=== PATIENT | female | born 1990 ===

== ENCOUNTER 2017-08-28 09:36 | Emergency (ER) | payer SELFPAY ==
[2017-08-28 09:57] VITALS: O2SAT 100; BMI 23.2
--- NOTE | 2017-08-28 11:08 | ED PDOC ---
HPI: Female Pain <Palmer Alvarado III - Last Filed: 08/28/17 14:28> Chief Complaint (Provider): abnormal vaginal discharge History Per: Patient History/Exam Limitations: no limitations Onset/Duration Of Symptoms: Days Current Symptoms Are (Timing): Still Present Severity: None Associated Symptoms: Other (breast tenderness). denies: Fever, Chills, Nausea, Vomiting, Diarrhea, Loss Of Appetite, Back Pain, Urinary Symptoms Alleviating Factors: None Additional Complaint(s): 27 yr old presents to ED with complaint of abnormal vaginal discharge x 1 day. Patient reports she took an at home test last week and it was positive. She has brown vaginal discharge since yesterday accompanied by one episode of transient pelvic pain which resolved on its own. Associated symptom is breast tenderness. Denies pelvic pain, vaginal pruritus, dizziness, weakness , fevers or chills. She does not have a PMD. She last saw a education professional 3 months ago and had a normal pap smear. Denies hx of STI. LMP 07/15/17. PMHx: iron deficiency anemia SocHx: denies tobacco or drugs, consumes Etoh socially Medications: vitamins Allergies: NKDA <Keyona Hebert - Last Filed: 08/28/17 15:35> Time Seen by Provider: 08/28/17 09:53 Chief Complaint (Nursing): Abdominal Pain Supervising Attending Note - Attestation: I have personally seen and examined this patient.: Yes I have fully participated in the care of the patient.: Yes I have reviewed all pertinent clinical information, including history, physical exam and plan: Yes - Notes: Notes:: patient <Palmer Alvarado III - Last Filed: 08/28/17 14:28> Past Medical History Vital Signs: Last Vital Signs Temp 98 F 08/28/17 09:52 Pulse 59 L 08/28/17 09:52 Resp BP 108/69 08/28/17 09:52 Pulse Ox 100 08/28/17 13:29 <Palmer Alvarado III - Last Filed: 08/28/17 14:28> Vital Signs: Last Vital Signs Temp 98 F 08/28/17 09:52 Pulse 59 L 08/28/17 09:52 Resp BP 108/69 08/28/17 09:52 Pulse Ox 100 08/28/17 09:52 - Medical History PMH: Anemia - Surgical History Surgical History: (x 1 for failure to dilate) - Family History Family History: States: Other Other Family History: mother of breast cancer at age 37 yrs old, sister has a bleeding disorder - Living Arrangements Living Arrangements: With Family - Social History Current smoker - smoking cessation education provided: No Ex-Smoker (has not smoked in the last 12 months): No Alcohol: Social Drugs: Denies <Keyona Hebert - Last Filed: 08/28/17 15:35> - Allergies Allergies/Adverse Reactions: Allergies Allergy/AdvReac Type Severity Reaction Status Date / Time No Known Allergies Allergy Verified 08/28/17 10:26 Review of Systems Constitutional: Negative for: Fever, Chills, Malaise Eyes: Negative for: Vision Change ENT: Negative for: Nose Discharge, Throat Pain Cardiovascular: Negative for: Chest Pain, Palpitations, Light Headedness Respiratory: Negative for: Cough, Shortness of Breath Gastrointestinal: Negative for: Nausea, Vomiting, Abdominal Pain, Diarrhea, Constipation Genitourinary Female: Negative for: Dysuria, Frequency Musculoskeletal: Negative for: Neck Pain, Shoulder Pain Skin: Negative for: Rash, Lesions, Jaundice Neurological: Negative for: Weakness, Confusion, Dizziness Psych: Negative for: Anxiety, Depression <Keyona Hebert - Last Filed: 08/28/17 15:35> Physical Exam - Physical Exam Appears: Positive for: No Acute Distress Head Exam: Positive for: ATRAUMATIC, NORMOCEPHALIC Skin: Positive for: Normal Color, Warm, Dry Eye Exam: Positive for: EOMI, PERRL ENT: Negative for: Pharyngeal Erythema, Tonsillar Exudate Neck: Positive for: Normal, Painless ROM, Supple Cardiovascular/Chest: Positive for: Regular Rate, Rhythm. Negative for: Gallop , Murmur Respiratory: Positive for: Normal Breath Sounds. Negative for: Rales, Rhonchi Pulses-Carotid (L): 2+ Pulses-Carotid (R): 2+ Pulses-Radial (L): 2+ Pulses-Radial (R): 2+ Gastrointestinal/Abdominal: Positive for: Bowel Sounds (present), Soft. Negative for: Tenderness Pelvic Exam: Positive for: Speculum Exam Normal (no vaginal erythema or lesions , external cervical os closed, no cervical lesions), Bimanual Exam Normal, Discharge (brownish discharge), Other (office director in room: Penny Beltran). Negative for: No Cerv. Motion Tender Back: Positive for: Normal Inspection Extremity: Positive for: Normal ROM. Negative for: Tenderness, Pedal Edema Lymphatic: Negative for: Adenopathy Neurologic/Psych: Positive for: Alert, radio officer II-XII, Oriented, Mood/Affect (normal /full range), Gait (normal). Negative for: Motor/Sensory Deficits <Keyona Hebert - Last Filed: 08/28/17 15:35> - Laboratory Results Result Diagrams: 08/28/17 11:00 08/28/17 11:00 <Palmer Alvarado III - Last Filed: 08/28/17 14:28> - Laboratory Results Result Diagrams: 08/28/17 11:00 08/28/17 11:00 - ECG O2 Sat by Pulse Oximetry: 100 - Progress ED Course And Treament: -Urine test: positive -Udip: trace ketones, negative leuk/negative nitr -UA: -Beta Hcg quant -CBC w/diff: normal -CMP: normal -Type and screen: A negative -OB transvaginal US: intrauterine , approx 5 wks and 5 days gestation, trace subchorionic hemorrhage -Rhogam ordered <Keyona Hebert - Last Filed: 08/28/17 15:35> Disposition <Palmer Alvarado III - Last Filed: 08/28/17 14:28> - Patient ED Disposition Is Patient to be Admitted: No Counseled Patient/Family Regarding: Diagnosis, Need For Followup - Disposition Disposition: Routine/Home Disposition Time: 14:40 <Keyona Hebert - Last Filed: 08/28/17 15:35> - Clinical Impression Clinical Impression: Subchorionic hematoma, Rh negative status during , Threatened - Disposition [facility]] Condition: STABLE Additional Instructions: You received Rhogam today for your Rh negative status during Recommend pelvic rest- no sex, nothing in vagina, rest for next week. Followup with your OB doctor next week. Return to ER for any worse or new symptoms. Instructions: Threatened Miscarriage, Bleeding With (DC), Rho(D) Immune Globulin, - The First Month Forms: [employer] (Cameroonian) Print Language: GERMAN
[2017-08-28 11:38] LABS: SQUAMOUS EPITHIAL 1 /hpf (0-5); URINE BACTERIA RARE (<OCC); URINE BILIRUBIN NEGATIVE (NEGATIVE); URINE BLOOD NEGATIVE (NEGATIVE); URINE CLARITY SLIGHTY-CLOUDY (Clear); URINE COLOR YELLOW (YELLOW); URINE GLUCOSE (UA) NEG (Normal); URINE LEUKOCYTE ESTERASE NEG Leu/uL (Negative); URINE PROTEIN NEGATIVE (NEGATIVE); URINE UROBILINOGEN 0.2-1.0 mg/dL (0.2-1.0)
[2017-08-28 11:44] LABS: BASO % 0.3 % (0.0-2.0); EOS % 0.7 % (0.0-4.0); LYMPH # 1.5 K/uL (1.0-4.3); LYMPH % 25.4 % (20.0-40.0); MEAN CELL VOLUME 87.3 fl (81.0-99.0); MEAN CORPUSCULAR HEMOGLOBIN 29.8 pg (27.0-31.0); MEAN CORPUSCULAR HGB CONC 34.2 g/dL (33.0-37.0); MONO # 0.6 K/uL (0.0-0.8); MONO % 9.4 % (0.0-10.0); NEUT # 3.8 K/uL (1.8-7.0); NEUT % 64.2 % (50.0-75.0); NRBC % 0.2 % (0.0-0.0); RBC 4.36 Mil/uL (3.80-5.20); RED CELL DISTRIBUTION WIDTH 13.7 % (11.5-14.5)
[2017-08-28 12:00] LABS: ALB/GLOB RATIO 1.2 (1.0-2.1); ALBUMIN 3.8 g/dL (3.5-5.0); ALT/SGPT 32 U/L (9-52); AST/SGOT 20 U/L (14-36); BLOOD UREA NITROGEN 10 mg/dl (7-17); CALCIUM 8.9 mg/dL (8.4-10.2); GFR AFRICAN-AMERICAN > 60; GFR NON-AFRICAN AMERICAN > 60
--- NOTE | 2017-08-28 12:08 | US ---
PROCEDURE: OB Pelvic Ultrasound HISTORY: LMP: 07/15/2017 COMPARISON: None available. FINDINGS: UTERUS: Gestational sac: Single intrauterine gestation. Measures 1.4 cm compatible with estimated gestational age of 5 weeks, 4 days. Yolk sac: Measures 0.3 cm. pole: [place]-rump length measures 0.3 cm compatible with estimated gestational age of 5 weeks, 6 days Heart rate: Not yet identified. age (Ultrasound estimated): 5 weeks, 5 days Fransisca-gestational hemorrhage: Trace subchorionic hemorrhage Date of delivery (Ultrasound estimated) : 04/25/2018 Uterus measures 9.0 x 4.4 x 6.3 cm. Anteverted. Nonspecific echogenic area within the lower uterine segment measuring 1.7 x 0.8 x 2.1 cm. CERVIX: Measures 3.6 cm. Long and closed. No cervical abnormality seen. RIGHT OVARY: Measures 3.0 x 1.9 x 2.2 cm. No mass lesion. Normal flow. LEFT OVARY: Measures 3.9 x 1.8 x 1.9 cm. 2.9 x 1.1 x 1.1 cm corpus luteum. Normal flow. FREE FLUID: None. OTHER FINDINGS: None. IMPRESSION: Single intrauterine gestation with average ultrasound age of 5 weeks, 5 days. heart rate not yet identified. Findings may represent early normal/ abnormal . Trace subchorionic hemorrhage. Nonspecific echogenic area within the lower uterine segment measuring up to 2.1 cm. Close clinical follow-up with serial pelvic sonography and serum beta HCG levels is recommended.
[2017-08-28 14:38] VITALS: BP 106/68; PULSE 60; RESP 16; TEMP 97.6
== END 2017-08-28 14:38 | disposition home or self-care (01) ==
LOC: H.ER 09:36
DX: O20.0 Threatened abortion (principal); Z3A.00 Weeks of gestation of pregnancy not specified; O26.891 Other specified pregnancy related conditions, first trimester; D50.9 Iron deficiency anemia, unspecified; N89.8 Other specified noninflammatory disorders of vagina; O99.011 Anemia complicating pregnancy, first trimester; Z3A.01 Less than 8 weeks gestation of pregnancy; Z87.891 Personal history of nicotine dependence
CPT/HCPCS: 76817; 80053; 81003; 81025; 84702; 85025; 86850; 86900; 99283; J2792

== ENCOUNTER 2017-09-03 15:49 | Emergency (ER) | payer SELFPAY ==
[2017-09-03 15:49] VITALS: BMI 23.2
[2017-09-03 16:03] VITALS: PULSE 78
--- NOTE | 2017-09-03 16:15 | ED PDOC ---
HPI: Female Pain Time Seen by Provider: 09/03/17 16:14 Chief Complaint (Nursing): Female Genitourinary Chief Complaint (Provider): abdominal pain History Per: Patient (27 y/o female approx 6 weeks h/o subchorionic hematoma here with persistent lower abd pain and bright red vaginal bleeding. Patient states she has f/u appt scheduled friday was concerned about vaginal bleeding. patient has received rhogam last visit 08/28 for vaginal bleeding.) Past Medical History Reviewed: Historical Data, Nursing Documentation, Vital Signs Vital Signs: Last Vital Signs Temp 99.1 F 09/03/17 16:00 Pulse 78 09/03/17 16:00 Resp 16 09/03/17 16:00 BP 97/56 L 09/03/17 16:00 Pulse Ox 100 09/03/17 16:00 - Medical History PMH: Anemia - Surgical History Surgical History: (x 1 for failure to dilate) - Family History Family History: States: No Known Family Hx - Allergies Allergies/Adverse Reactions: Allergies Allergy/AdvReac Type Severity Reaction Status Date / Time No Known Allergies Allergy Verified 09/03/17 15:59 Review of Systems ROS Statement: Except As Marked, All Systems Reviewed And Found Negative Physical Exam - Reviewed Nursing Documentation Reviewed: Yes Vital Signs Reviewed: Yes - Physical Exam Appears: Positive for: Well, Non-toxic, No Acute Distress Head Exam: Positive for: ATRAUMATIC, NORMAL INSPECTION, NORMOCEPHALIC Skin: Positive for: Normal Color, Warm, DRY Eye Exam: Positive for: EOMI, Normal appearance, PERRL ENT: Positive for: Normal ENT Inspection Neck: Positive for: Normal, Painless ROM Cardiovascular/Chest: Positive for: Regular Rate, Rhythm Respiratory: Positive for: CNT, Normal Breath Sounds Gastrointestinal/Abdominal: Positive for: Normal Exam, Soft Back: Positive for: Normal Inspection Extremity: Positive for: Normal ROM Neurologic/Psych: Positive for: Alert, Oriented - Laboratory Results Result Diagrams: 09/03/17 17:30 09/03/17 17:30 - ECG O2 Sat by Pulse Oximetry: 100 - Progress ED Course And Treament: IMPRESSION: Single live intrauterine gestation of approximately 6 weeks 4 days. heart rate 133 beats per minute. No perigestational hemorrhage. Small amount of complex fluid in the lower uterine segment, possibly blood. Small amount of fluid in cul-de-sac. No additional abnormality. Disposition - Clinical Impression Clinical Impression: Subchorionic hemorrhage in first trimester - Disposition [facility]errals[facility] [[facility]] Disposition: Routine/Home Disposition Time: 18:43 Condition: FAIR Instructions: Threatened Miscarriage (DC), Bleeding With (DC) Forms: [employer] (Niuean) Print Language: PRYDEINIG
[2017-09-03 17:40] LABS: BASO % 0.4 % (0.0-2.0); EOS # 0.1 K/uL (0.0-0.7); EOS % 1.3 % (0.0-4.0); HEMOGLOBIN 12.1 g/dL (12.0-16.0); LYMPH # 1.1 K/uL (1.0-4.3); MEAN CELL VOLUME 88.7 fl (81.0-99.0); MEAN CORPUSCULAR HEMOGLOBIN 29.5 pg (27.0-31.0); MEAN CORPUSCULAR HGB CONC 33.2 g/dL (33.0-37.0); MEAN PLATELET VOLUME 9.3 fl (7.2-11.7); MONO # 0.5 K/uL (0.0-0.8); MONO % 6.8 % (0.0-10.0); NEUT # 5.5 K/uL (1.8-7.0); NEUT % 76.5 % (50.0-75.0); RBC 4.09 Mil/uL (3.80-5.20); RED CELL DISTRIBUTION WIDTH 13.7 % (11.5-14.5); WHITE BLOOD COUNT 7.2 K/uL (4.8-10.8)
[2017-09-03 17:48] LABS: BLOOD UREA NITROGEN 11 mg/dl (7-17); CALCIUM 8.4 mg/dL (8.4-10.2); GFR AFRICAN-AMERICAN > 60; GFR NON-AFRICAN AMERICAN > 60
[2017-09-03 18:15] LABS: SQUAMOUS EPITHIAL 14 /hpf (0-5); URINE BACTERIA OCC (<OCC); URINE BILIRUBIN NEGATIVE (NEGATIVE); URINE BLOOD MODERATE (NEGATIVE); URINE CLARITY CLOUDY (Clear); URINE COLOR YELLOW (YELLOW); URINE GLUCOSE (UA) NEG (Normal); URINE LEUKOCYTE ESTERASE NEG Leu/uL (Negative); URINE PROTEIN NEGATIVE (NEGATIVE); URINE UROBILINOGEN 0.2-1.0 mg/dL (0.2-1.0)
--- NOTE | 2017-09-03 18:15 | US ---
PROCEDURE: OB Pelvic Ultrasound HISTORY: threatened miscarriage COMPARISON: 08/28/2017 FINDINGS: UTERUS: Single Live intrauterine gestation. CRL is 62 mm equivalent to 6 weeks 3 days gestational age. Gestational sac diameter equivalent to 6 weeks 5 days gestation age (Ultrasound estimated): 6 weeks 4 days Date of delivery (Ultrasound estimated) : 04/25/2018 Heart rate: 133 bpm. Fransisca-gestational hemorrhage: None There is a small amount of complex fluid in the lower endometrial cavity, possibly reflecting current hemorrhage. CERVIX: Long and closed. No cervical abnormality seen. RIGHT OVARY: Measures 3.3 x 1.8 x 2.9 cm. No mass. Normal flow. LEFT OVARY: Measures 3.2 x 1.5 x 3.6 cm. No mass. Normal flow. FREE FLUID: Small amount of fluid in cul-de-sac OTHER FINDINGS: None. IMPRESSION: Single live intrauterine gestation of approximately 6 weeks 4 days. heart rate 133 beats per minute. No perigestational hemorrhage. Small amount of complex fluid in the lower uterine segment, possibly blood. Small amount of fluid in cul-de-sac. No additional abnormality.
[2017-09-03 19:03] VITALS: BP 100/56; RESP 18; TEMP 98.8; O2SAT 99
== END 2017-09-03 19:02 | disposition home or self-care (01) ==
LOC: H.ER 15:49
DX: O20.0 Threatened abortion (principal); Z3A.01 Less than 8 weeks gestation of pregnancy

== ENCOUNTER 2017-11-21 04:08 | Emergency (ER) | payer MEDICAID ==
[2017-11-21 04:25] VITALS: BMI 25.6
[2017-11-21 04:28] VITALS: RESP 16
--- NOTE | 2017-11-21 05:29 | ED PDOC ---
HPI: Female Pain Time Seen by Provider: 11/21/17 04:11 Chief Complaint (Nursing): Female Genitourinary Chief Complaint (Provider): Abdominal pain and vaginal bleeding History Per: Patient History/Exam Limitations: no limitations Onset/Duration Of Symptoms: Hrs (x4) Additional Complaint(s): Serena Concepcion is a 27 y/o woman who is , EGA 16.5 weeks , presenting with abdominal pain with associated vaginal bleeding. Patient reports she was seen at the emergency room in the [place] x6 days ago (11/15/17) and x2 days ago (11/19/17) and was told at that time she had a fibroma. Patient reports pain became worse around 01:00 today prompting the ED visit. : 2 Para: 1 Past Medical History Reviewed: Historical Data, Nursing Documentation, Vital Signs Vital Signs: Last Vital Signs Temp 98.7 F 11/21/17 04:25 Pulse 74 11/21/17 04:25 Resp 16 11/21/17 04:25 BP 114/64 11/21/17 04:25 Pulse Ox 100 11/21/17 04:25 - Medical History PMH: Anemia - Surgical History Surgical History: (x 1 for failure to dilate) - Family History Family History: States: Unknown Family Hx - Social History Current smoker - smoking cessation education provided: No Alcohol: None Drugs: Denies - Allergies Allergies/Adverse Reactions: Allergies Allergy/AdvReac Type Severity Reaction Status Date / Time No Known Allergies Allergy Verified 11/21/17 04:25 Review of Systems ROS Statement: Except As Marked, All Systems Reviewed And Found Negative Gastrointestinal: Positive for: Abdominal Pain Genitourinary Female: Positive for: Vaginal Bleeding Physical Exam - Reviewed Nursing Documentation Reviewed: Yes Vital Signs Reviewed: Yes - Physical Exam Appears: Positive for: Uncomfortable Head Exam: Positive for: ATRAUMATIC, NORMOCEPHALIC Skin: Positive for: Normal Color, Warm, Dry Eye Exam: Positive for: EOMI, Normal appearance, PERRL Neck: Positive for: Normal, Painless ROM, Supple Cardiovascular/Chest: Positive for: Regular Rate, Rhythm. Negative for: Murmur Respiratory: Positive for: Normal Breath Sounds. Negative for: Respiratory Distress Gastrointestinal/Abdominal: Positive for: Normal Exam, Soft, Other (gravid fundus). Negative for: Tenderness Back: Positive for: Normal Inspection. Negative for: L CVA Tenderness, R CVA Tenderness Extremity: Positive for: Normal ROM. Negative for: Pedal Edema, Deformity Neurologic/Psych: Positive for: Alert, Oriented. Negative for: Motor/Sensory Deficits - Laboratory Results Result Diagrams: 11/21/17 05:35 - ECG O2 Sat by Pulse Oximetry: 100 (RA) Pulse Ox Interpretation: Normal Medical Decision Making Medical Decision Making: Time: 04:36 Impression: 27 y/o female presenting with abdominal pain and vaginal bleeding in in setting of recently diagnosed fibroids Initial Plan: --beta-HCG --Ed urine dipstick --CBC w/ differential --Tylenol 650 mg PO --Urinalysis --US - OB Time: 07:00 Patient care is endorsed to Dr. Alvarado from provider pending US and reevaluation. Scribe Attestation: Documented by Duncan Freire, acting as a scribe for Art Olmstead MD. Provider Scribe Attestation: All medical record entries made by the Scribe were at my direction and personally dictated by me. I have reviewed the chart and agree that the record accurately reflects my personal performance of the history, physical exam, medical decision making, and the department course for this patient. I have also personally directed, reviewed, and agree with the discharge instructions and disposition. Disposition - Patient ED Disposition Is Patient to be Admitted: Transfer of Care - Disposition Disposition: Transfer of Care Disposition Time: 07:00 (transfer of care) Forms: [employer] (Albanian) Patient Signed Over To: Palmer Alvarado III Handoff Comments: Pending US and reeval
[2017-11-21] MEDS ORDERED: Morphine 4 MG/ML VIAL IVP ONE (05:31)
[2017-11-21] MEDS ORDERED: Morphine 4 MG/ML VIAL ONE (05:32)
[2017-11-21] MEDS ORDERED: Sodium Chloride 0.9% 1,000 ML IV STA (05:33)
[2017-11-21 05:40] LABS: BASO % 0.2 % (0.0-2.0); EOS # 0.1 K/uL (0.0-0.7); EOS % 0.6 % (0.0-4.0); HEMOGLOBIN 11.9 g/dL (12.0-16.0); LYMPH # 1.6 K/uL (1.0-4.3); LYMPH % 12.5 % (20.0-40.0); MEAN CELL VOLUME 90.2 fl (81.0-99.0); MEAN CORPUSCULAR HEMOGLOBIN 30.7 pg (27.0-31.0); MEAN CORPUSCULAR HGB CONC 34.1 g/dL (33.0-37.0); MEAN PLATELET VOLUME 8.5 fl (7.2-11.7); MONO # 0.7 K/uL (0.0-0.8); MONO % 5.3 % (0.0-10.0); NEUT # 10.1 K/uL (1.8-7.0); NEUT % 81.4 % (50.0-75.0); RBC 3.88 Mil/uL (3.80-5.20); RED CELL DISTRIBUTION WIDTH 14.2 % (11.5-14.5); WHITE BLOOD COUNT 12.5 K/uL (4.8-10.8)
[2017-11-21 05:51] LABS: SQUAMOUS EPITHIAL 3 /hpf (0-5); URINE BILIRUBIN NEGATIVE (NEGATIVE); URINE BLOOD LARGE (NEGATIVE); URINE CLARITY SLIGHTY-CLOUDY (Clear); URINE COLOR YELLOW (YELLOW); URINE GLUCOSE (UA) NEG (Normal); URINE LEUKOCYTE ESTERASE SMALL Leu/uL (Negative); URINE PROTEIN NEGATIVE (NEGATIVE); URINE UROBILINOGEN 0.2-1.0 mg/dL (0.2-1.0)
--- NOTE | 2017-11-21 06:57 | ED PDOC ---
- Laboratory Results Result Diagrams: 11/21/17 05:35 - ECG O2 Sat by Pulse Oximetry: 100 (RA) Medical Decision Making Medical Decision Makinam received pending US and labs Pelvic exam performed sterile conditions w RN meseret minor bleeding in vag vault cervix closed Rh neg but she states received Rhogam at [facility] this past weekend after similar ED visit US prelim +FHR at 18wks placenta posterior away from cervix D/w Dr Jade OB advertising production manager no need for further imaging at this gestational age for cervix visualization, rec treat UTI w keflex and follow culture, pelvic rest. explained results and recs in divehi via ab[employer]ix tape transferrer service Disposition Discussed With Dr.: Haile Jade Counseled Patient/Family Regarding: Studies Performed, Diagnosis, Need For Followup - Clinical Impression Clinical Impression: UTI (urinary tract infection) - POA Present On Arrival: None - Disposition Disposition: Routine/Home Disposition Time: 09:33 Condition: STABLE Additional Instructions: Recommend pelvic rest, no sex, nothing in vagina, no heavy lifting or exertion. See your OB within next week for followup/ Recomiende el descanso plvico, nada de sexo, nada en la vagina, ni levantar objetos pesados ni hacer ejercicio. Consulte a adler OB la prxima semana para adler seguimiento / Como antibiticos segn las indicaciones. Use solo Tylenol para el dolor. Prescriptions: Cephalexin [Keflex] 250 mg PO TID #15 capsule Instructions: Urinary Tract Infections in Adults, Threatened Miscarriage, Bleeding With (DC) Forms: [employer] (Mexican) Print Language: BRITISH
[2017-11-21 10:09] VITALS: BP 104/68; PULSE 68; TEMP 97.7; O2SAT 98
--- NOTE | 2017-11-21 11:54 | US ---
Date of service: 11/21/2017 PROCEDURE: HISTORY: Abdominal pain COMPARISON: None available. TECHNIQUE: Standard protocol for this study/examination. FINDINGS: Breech presentation. Posterior Placenta. No evidence of abruption or previa Gestational age derived from LMP 18 weeks 2 days. JULIET 04/22/2018. Gestational age derived from the following biometric parameters 18 weeks. JULIET 04/24/2018 Biparietal diameter 3.96 cm Head circumference 14.88 cm Abdominal circumference 12.40 cm Femur length 2.65 cm Estimated weight 221.4 g Calculated cardiac rate 142 beats per min. IMPRESSION: Eighteen weeks live intrauterine gestation. Gestational concordance documented. Concordant results (preliminary interpretation) provided by [facility]. Procedure Completed: 06:06. Preliminary ([facility]) Report: Dictated and Authenticated: 07:50. Final Interpretation: 11:53.
== END 2017-11-21 10:14 | disposition home or self-care (01) ==
LOC: H.ER 04:08 → H.ERHOLD 11-22 02:29 → UNDOADMIN 11-22 02:29
DX: O23.40 Unspecified infection of urinary tract in pregnancy, unspecified trimester (principal); O21.9 Vomiting of pregnancy, unspecified
CPT/HCPCS: 76815; 81003; 84702; 85025; 86850; 86870; 86900; 87086; 96361; 96374; 99284; J2270; J7030

== ENCOUNTER 2017-11-22 00:30 | Observation (INO) | payer MEDICAID ==
[2017-11-22 00:30] VITALS: BMI 25.6
--- NOTE | 2017-11-22 00:45 | ED PDOC ---
HPI: Female Pain Time Seen by Provider: 11/22/17 00:44 Chief Complaint (Nursing): Female Genitourinary Chief Complaint (Provider): with abdominal pain Additional Complaint(s): 27 year old female, , currently 18 weeks presents with lower abdominal pain and vaginal bleeding. Patient was seen in emergency room yesterday for same and ultrasound showed that she is 18 weeks in 2 days with breech position. Patient returns today with persistent pain but states that bleeding has decreased since yesterday. She denies any fever or chills, no nausea or vomiting. OB: in the [place] Past Medical History Reviewed: Historical Data, Nursing Documentation, Vital Signs - Medical History PMH: Anemia - Surgical History Surgical History: (x 1 for failure to dilate) - Family History Family History: States: No Known Family Hx - Living Arrangements Living Arrangements: With Family - Social History Current smoker - smoking cessation education provided: No Alcohol: None Drugs: Denies - Home Medications Home Medications: Ambulatory Orders Medication Instructions Recorded Cephalexin [Keflex] 250 mg PO TID #15 capsule 11/21/17 - Allergies Allergies/Adverse Reactions: Allergies Allergy/AdvReac Type Severity Reaction Status Date / Time No Known Allergies Allergy Verified 11/22/17 00:42 Review of Systems ROS Statement: Except As Marked, All Systems Reviewed And Found Negative Constitutional: Negative for: Fever, Chills Cardiovascular: Negative for: Chest Pain Respiratory: Negative for: Cough Gastrointestinal: Positive for: Abdominal Pain. Negative for: Nausea, Vomiting , Diarrhea Genitourinary Female: Positive for: Vaginal Bleeding, Pelvic Pain Physical Exam - Reviewed Nursing Documentation Reviewed: Yes Vital Signs Reviewed: Yes - Physical Exam Appears: Positive for: Well, Non-toxic, No Acute Distress Skin: Positive for: Normal Color. Negative for: Rash Eye Exam: Positive for: Normal appearance Neck: Positive for: Normal Cardiovascular/Chest: Positive for: Regular Rate, Rhythm Respiratory: Positive for: Normal Breath Sounds. Negative for: Wheezing, Respiratory Distress Gastrointestinal/Abdominal: Positive for: Other (Gravid abdomen with tenderness to suprapubic region) Back: Negative for: L CVA Tenderness, R CVA Tenderness Extremity: Positive for: Normal ROM Neurologic/Psych: Positive for: Alert, Oriented - Laboratory Results Result Diagrams: 11/22/17 01:32 11/22/17 01:32 - ECG O2 Sat by Pulse Oximetry: 100 Pulse Ox Interpretation: Normal Medical Decision Making Medical Decision Makin27 year old female with abdominal pain and vaginal bleeding Plan: CBC CMP Beta quant IVF IV morphine IV zofran , OB fellow and Dr. Hare, OB attending, at bedside. As per pelvic exam demonstrates that cervix is open and that miscarriage is likely. Shortly after this examination patient began to miscarry and delivered fetus in ED. Patient was given total of 8 mg IV morphine and started on Pitocin drip as per Dr. Hare, for delivery of placenta. 4:15 am: Dr. Hare at bedside delivered placenta. Pitocin drip was stopped after placenta was delivered. Patient's blood type is A- she had RhoGAM administered on November 15, she does not require additional RhoGAM at this time. 5:19: Patient was reexamined, persistent vaginal bleeding noted. Case discussed further with Dr. Hare. Patient will be admitted for observation to his service. Patient agrees with observation admission. Disposition - Clinical Impression Clinical Impression: Spontaneous miscarriage - Patient ED Disposition Is Patient to be Admitted: Yes - Disposition Disposition Time: 05:23 Condition: FAIR - Pt Status Changed To: Hospital Disposition Of: Observation Results - Lab Results Lab Results: 11/22/17 11/22/17 01:32 01:32 WBC 11.7 H RBC 4.00 Hgb 12.3 Hct 36.1 MCV 90.4 MCH 30.8 MCHC 34.0 RDW 14.3 Plt Count 121 L MPV 8.3 Neut % (Auto) 82.3 H Lymph % (Auto) 11.8 L [place] % (Auto) 5.4 Eos % (Auto) 0.3 Baso % (Auto) 0.2 Neut # (Auto) 9.6 H Lymph # (Auto) 1.4 [place] # (Auto) 0.6 Eos # (Auto) 0.0 Baso # (Auto) 0.0 Sodium 135 Potassium 3.4 L Chloride 105 Carbon Dioxide 22 Anion Gap 11 BUN 8 Creatinine 0.5 L Est GFR ( Amer) > 60 Est GFR (Non-Af Amer) > 60 Random Glucose 109 H Calcium 8.5 Total Bilirubin 0.6 AST 28 ALT 40 Alkaline Phosphatase 74 Total Protein 6.9 Albumin 3.5 Globulin 3.4 Albumin/Globulin Ratio 1.0 Beta HCG, Quant 69563.00
[2017-11-22] MEDS ORDERED: Sodium Chloride 0.9% 1,000 ML IV STA ×2 (01:18→03:26)
[2017-11-22 01:34] LABS: BASO % 0.2 % (0.0-2.0); EOS % 0.3 % (0.0-4.0); HEMOGLOBIN 12.3 g/dL (12.0-16.0); LYMPH # 1.4 K/uL (1.0-4.3); LYMPH % 11.8 % (20.0-40.0); MEAN CELL VOLUME 90.4 fl (81.0-99.0); MEAN CORPUSCULAR HEMOGLOBIN 30.8 pg (27.0-31.0); MEAN PLATELET VOLUME 8.3 fl (7.2-11.7); MONO # 0.6 K/uL (0.0-0.8); MONO % 5.4 % (0.0-10.0); NEUT # 9.6 K/uL (1.8-7.0); NEUT % 82.3 % (50.0-75.0); RED CELL DISTRIBUTION WIDTH 14.3 % (11.5-14.5); WHITE BLOOD COUNT 11.7 K/uL (4.8-10.8)
[2017-11-22 01:44] LABS: ALBUMIN 3.5 g/dL (3.5-5.0); ALT/SGPT 40 U/L (9-52); AST/SGOT 28 U/L (14-36); BLOOD UREA NITROGEN 8 mg/dl (7-17); CALCIUM 8.5 mg/dL (8.4-10.2); GFR AFRICAN-AMERICAN > 60; GFR NON-AFRICAN AMERICAN > 60
[2017-11-22] MEDS ORDERED: Morphine 4 MG/ML VIAL ONE ×2 (02:15→02:42)
[2017-11-22] MEDS ORDERED: Morphine 4 MG/ML VIAL IVP STA (02:16)
[2017-11-22] MEDS ORDERED: Morphine 4 MG/ML VIAL IVP ONE (02:51)
--- NOTE | 2017-11-22 03:31 | CP.PCM.CON ---
<Rimma Lopez - Last Filed: 11/22/17 04:55> History of Present Illness - History of Present Illness History of Present Illness: Teleprinter was used for entire history and exam. Reason for Consult: Abdominal pain in the second trimester, vaginal bleeding Serena is a 27 year old at 18 weeks 3 days who is in the ER for the second time in 24 hours for abdominal pain and worsening vaginal bleeding. Currently she reports severe, episodic lower abdominal pain that began on and has been progressively worsening since. When the pain is present she rates it at a 10/10. She also reports that her vaginal bleeding began yesterday and has been worsening since that time. Denies diarrhea, vomiting, fever, chills, bloody stool, dysuria, urinary frequency or urgency. She was discharged less than 24 hours ago from the ED after a speculum exam showed small amounts of blood in the vault and a transvaginal US showed a viable IUP at 38 weeks and 2 days with no evidence of abruption or subchorionic hematoma, the adenexae were not evaluated, nor was surgical length. She had a UA showing moderate leukocyte esterase and was discharged with a prescription of Keflex, of which she has taken one dose. She had a normal WBC count at that time. Past Patient History - Past Medical History & Family History Past Family History: Reviewed and not pertinent (She has a history of one previous that delivered via at term with no complications. She denies any complications with this current .) - Past Social History Alcohol: None Drugs: Denies - HEMATOLOGICAL/ONCOLOGICAL Hx Anemia: Yes - PSYCHIATRIC Hx Substance Use: No - SURGICAL HISTORY Hx Surgeries: Yes Hx Section: Yes - ANESTHESIA Hx Anesthesia: Yes Hx Anesthesia Reactions: No Meds Allergies/Adverse Reactions: Allergies Allergy/AdvReac Type Severity Reaction Status Date / Time No Known Allergies Allergy Verified 11/22/17 00:42 - Medications Medications: Current Medications Sodium Chloride (Sodium Chloride 0.9%) 1,000 mls @ 125 mls/hr IV .Q8H STA Stop: 11/22/17 09:17 Last Admin: 11/22/17 01:31 Dose: 125 mls/hr Oxytocin 30 units/ Lactated (Ringer's) 503 mls @ 125 mls/hr IV .Q4H2M ONE PRN Reason: Protocol Stop: 11/22/17 06:52 Last Admin: 11/22/17 03:05 Dose: 125 mls/hr Physical Exam - Constitutional Additional comments: In pain, constantly shifting in bed - Respiratory Exam Respiratory Exam: NORMAL BREATHING PATTERN - GI/Abdominal Exam Additional comments: Gravid abdomen, tenderness to palpation in the lower quadrants and suprapubic region - Exam Additional comments: Speculum exam showed a bulging bag close to the introitus. Cervical/bimanual exam revealed a dilation of 3cm/90/bulging bag, no presenting part was felt. There was a small amount of deangelo blood seen around the introitus and in the vaginal vault. Results - Vital Signs Recent Vital Signs: Last Vital Signs Temp 98.2 F 11/22/17 03:04 Pulse 79 11/22/17 03:04 Resp 18 11/22/17 03:04 BP 118/68 11/22/17 03:04 Pulse Ox 98 11/22/17 03:04 - Labs Result Diagrams: 11/22/17 01:32 11/22/17 01:32 Labs: Laboratory Results - last 24 hr 11/22/17 11/22/17 01:32 01:32 WBC 11.7 H RBC 4.00 Hgb 12.3 Hct 36.1 MCV 90.4 MCH 30.8 MCHC 34.0 RDW 14.3 Plt Count 121 L MPV 8.3 Neut % (Auto) 82.3 H Lymph % (Auto) 11.8 L [place] % (Auto) 5.4 Eos % (Auto) 0.3 Baso % (Auto) 0.2 Neut # (Auto) 9.6 H Lymph # (Auto) 1.4 [place] # (Auto) 0.6 Eos # (Auto) 0.0 Baso # (Auto) 0.0 Sodium 135 Potassium 3.4 L Chloride 105 Carbon Dioxide 22 Anion Gap 11 BUN 8 Creatinine 0.5 L Est GFR ( Amer) > 60 Est GFR (Non-Af Amer) > 60 Random Glucose 109 H Calcium 8.5 Total Bilirubin 0.6 AST 28 ALT 40 Alkaline Phosphatase 74 Total Protein 6.9 Albumin 3.5 Globulin 3.4 Albumin/Globulin Ratio 1.0 Beta HCG, Quant 39067.00 Assessment & Plan (1) Inevitable complete spontaneous without complication Status: Acute Onset Date: ~11/22/17 Comment: Serena is a 27 year old who presented to the ER with fluctuating lower abdominal pain and vaginal bleeding found to be having an inevitable spontaneous second trimester with an open cervix and visible amniotic membranes. Shortly after her exam her pain steadily worsened. The initial plan was to admit her to L&D for pain control and miscarriage management, however she quickly delivered in the ER with an intact fetus. The usual dose of 30 units pitocin was begun with expectant management of the placenta, however after approximately one hour the placenta had not delivered. After gentle traction and partial manual extraction the placenta was eventually removed with minimal vaginal bleeding and good uterine tone. The patient spent time with the fetus in the ER before it was placed into a specimen container along with the placenta for pathology. Serena was offered a period of observation in the hospital but preferred to remain in the ER until a ride could be found to go home. She was counseled extensively on return precautions including excessive bleeding and signs/symptoms of infection. She is Rh negative but received Rhogam November 15 at an outside facility (she presented a card with verification ) so an additional Rhogam shot was not administered. It was also recommended that she make a follow-up appointment with a primary care provider to discuss the grieving process. The plan was discussed with the manager application ER physician, Dr. Sutton, as well as Kaye Munoz, who were in agreement with the plan for discharge to home as long as patient remained in stable condition. All patient questions were answered. (2) Second trimester Status: Acute Comment: Recommended she consult with her primary care physician, and likely an MFM, depending on the results of the pathology, since this is a second trimester miscarriage. There were no risk factors identified for cervical incompetence on initial history, however a more thorough medical and genetic history is likely warranted. <Jack Hare - Last Filed: 11/23/17 12:03> Results - Vital Signs Recent Vital Signs: Last Vital Signs Temp 97.5 F L 11/22/17 08:59 Pulse 74 11/22/17 09:33 Resp 17 11/22/17 09:33 BP 95/63 L 11/22/17 08:59 Pulse Ox 99 11/22/17 09:33 - Labs Result Diagrams: 11/22/17 05:50 11/22/17 01:32 Attending/Attestation - Attestation I have personally seen and examined this patient.: Yes I have fully participated in the care of the patient.: Yes I have reviewed all pertinent clinical information: Yes
[2017-11-22] MEDS ORDERED: cefTRIAXone (Rocephin) 1 gm Inj ONE (05:44)
[2017-11-22 06:00] LABS: BASO % 0.1 % (0.0-2.0); EOS % 0.1 % (0.0-4.0); HEMOGLOBIN 12.2 g/dL (12.0-16.0); LYMPH # 1.1 K/uL (1.0-4.3); LYMPH % 5.6 % (20.0-40.0); MEAN CELL VOLUME 90.4 fl (81.0-99.0); MEAN CORPUSCULAR HEMOGLOBIN 30.6 pg (27.0-31.0); MEAN CORPUSCULAR HGB CONC 33.8 g/dL (33.0-37.0); MEAN PLATELET VOLUME 8.2 fl (7.2-11.7); MONO # 0.5 K/uL (0.0-0.8); MONO % 2.4 % (0.0-10.0); NEUT # 17.7 K/uL (1.8-7.0); NEUT % 91.8 % (50.0-75.0); PLATELET COUNT 141 K/uL (130-400); RBC 4.01 Mil/uL (3.80-5.20); RED CELL DISTRIBUTION WIDTH 14.1 % (11.5-14.5); WHITE BLOOD COUNT 19.3 K/uL (4.8-10.8)
[2017-11-22 09:00] VITALS: BP 95/63; TEMP 97.5
[2017-11-22 09:50] VITALS: PULSE 74; RESP 17; O2SAT 99
--- NOTE | 2017-11-22 10:02 | CP.PCM.DIS ---
<Rodo Silvestre - Last Filed: 11/22/17 11:06> Provider - Provider Date of Admission: 11/22/17 02:29 Attending physician: Jack Hare Time Spent in preparation of Discharge (in minutes): 15 Hospital Course - Lab Results Lab Results: Most Recent Lab Values WBC 19.3 K/uL (4.8-10.8) H D 11/22/17 05:50 RBC 4.01 Mil/uL (3.80-5.20) 11/22/17 05:50 Hgb 12.2 g/dL (12.0-16.0) 11/22/17 05:50 Hct 36.2 % (34.0-47.0) 11/22/17 05:50 MCV 90.4 fl (81.0-99.0) 11/22/17 05:50 MCH 30.6 pg (27.0-31.0) 11/22/17 05:50 MCHC 33.8 g/dL (33.0-37.0) 11/22/17 05:50 RDW 14.1 % (11.5-14.5) 11/22/17 05:50 Plt Count 141 K/uL (130-400) 11/22/17 05:50 MPV 8.2 fl (7.2-11.7) 11/22/17 05:50 Neut % (Auto) 91.8 % (50.0-75.0) H 11/22/17 05:50 Lymph % (Auto) 5.6 % (20.0-40.0) L 11/22/17 05:50 [place] % (Auto) 2.4 % (0.0-10.0) 11/22/17 05:50 Eos % (Auto) 0.1 % (0.0-4.0) 11/22/17 05:50 Baso % (Auto) 0.1 % (0.0-2.0) 11/22/17 05:50 Neut # (Auto) 17.7 K/uL (1.8-7.0) H 11/22/17 05:50 Lymph # (Auto) 1.1 K/uL (1.0-4.3) 11/22/17 05:50 [place] # (Auto) 0.5 K/uL (0.0-0.8) 11/22/17 05:50 Eos # (Auto) 0.0 K/uL (0.0-0.7) 11/22/17 05:50 Baso # (Auto) 0.0 K/uL (0.0-0.2) 11/22/17 05:50 Sodium 135 mmol/l (132-148) 11/22/17 01:32 Potassium 3.4 MMOL/L (3.6-5.0) L 11/22/17 01:32 Chloride 105 mmol/L (98-107) 11/22/17 01:32 Carbon Dioxide 22 mmol/L (22-30) 11/22/17 01:32 Anion Gap 11 (10-20) 11/22/17 01:32 BUN 8 mg/dl (7-17) 11/22/17 01:32 Creatinine 0.5 mg/dl (0.7-1.2) L 11/22/17 01:32 Est GFR ( Amer) > 60 11/22/17 01:32 Est GFR (Non-Af Amer) > 60 11/22/17 01:32 Random Glucose 109 mg/dL (65-105) H 11/22/17 01:32 Calcium 8.5 mg/dL (8.4-10.2) 11/22/17 01:32 Total Bilirubin 0.6 mg/dl (0.2-1.3) 11/22/17 01:32 AST 28 U/L (14-36) 11/22/17 01:32 ALT 40 U/L (9-52) 11/22/17 01:32 Alkaline Phosphatase 74 U/L (38-126) 11/22/17 01:32 Total Protein 6.9 G/DL (6.3-8.2) 11/22/17 01:32 Albumin 3.5 g/dL (3.5-5.0) 11/22/17 01:32 Globulin 3.4 gm/dL (2.2-3.9) 11/22/17 01:32 Albumin/Globulin Ratio 1.0 (1.0-2.1) 11/22/17 01:32 Beta HCG, Quant 98073.00 mIU/mL 11/22/17 01:32 - Hospital Course Hospital Course: Pt is a 27 yo f on 18 wk with no PMH present to ER due to abdomianl pain and vaginal bleeding. Pt was admitted for evaluate for spontaneous . Pt was treated with Oxytocin, Morphine to complete the and control the pain. Pt was given Rocephin afterward. As per today Pt abdominal pain have improved, still have some blood, but decreasing, She still tearful due to the acute event, Pt received extensive consult from the OBGYN attending about miscarriage, and how to to manage. Pt have no complain as per today, she denies headache, chest pain SOB, diarrhea constipation, dysuria or polyuria. Pt feel ready to go home. Pt is medically cleared from point of view of OBGYN. Pt should F/U with PCP in 1 to 2 week. - Date & Time of H&P Date of H&P: 11/22/17 Time of H&P: 10:57 Discharge Exam - Head Exam Head Exam: ATRAUMATIC, NORMAL INSPECTION, NORMOCEPHALIC - Eye Exam Eye Exam: EOMI, Normal appearance, PERRL Pupil Exam: NORMAL ACCOMODATION, PERRL - ENT Exam ENT Exam: Mucous Membranes Moist, Normal Exam - Neck Exam Neck exam: Full Rom - Respiratory Exam Respiratory Exam: Clear to PA & Lateral, NORMAL BREATHING PATTERN, UNREMARKABLE - Cardiovascular Exam Cardiovascular Exam: REGULAR RHYTHM, +S1, +S2 - GI/Abdominal Exam GI & Abdominal Exam: Normal Bowel Sounds, Tenderness, Unremarkable Additional comments: tender on LLQ - Back Exam Back exam: NORMAL INSPECTION - Neurological Exam Neurological exam: Alert, Normal Gait, Oriented x3 - Psychiatric Exam Psychiatric exam: Normal Affect, Normal Mood - Skin Skin Exam: Dry, Intact, Normal Color, Warm Discharge Plan - Follow Up Plan Condition: GOOD Disposition: HOME/ ROUTINE Patient education suggested?: Yes Instructions: Miscarriage, Dealing With Miscarriage, Miscarriage (DC) <Jack Hare - Last Filed: 11/23/17 12:04> Provider - Provider Date of Admission: 11/22/17 02:29 Attending physician: [facility] - Lab Results Lab Results: Most Recent Lab Values WBC 19.3 K/uL (4.8-10.8) H D 11/22/17 05:50 RBC 4.01 Mil/uL (3.80-5.20) 11/22/17 05:50 Hgb 12.2 g/dL (12.0-16.0) 11/22/17 05:50 Hct 36.2 % (34.0-47.0) 11/22/17 05:50 MCV 90.4 fl (81.0-99.0) 11/22/17 05:50 MCH 30.6 pg (27.0-31.0) 11/22/17 05:50 MCHC 33.8 g/dL (33.0-37.0) 11/22/17 05:50 RDW 14.1 % (11.5-14.5) 11/22/17 05:50 Plt Count 141 K/uL (130-400) 11/22/17 05:50 MPV 8.2 fl (7.2-11.7) 11/22/17 05:50 Neut % (Auto) 91.8 % (50.0-75.0) H 11/22/17 05:50 Lymph % (Auto) 5.6 % (20.0-40.0) L 11/22/17 05:50 [place] % (Auto) 2.4 % (0.0-10.0) 11/22/17 05:50 Eos % (Auto) 0.1 % (0.0-4.0) 11/22/17 05:50 Baso % (Auto) 0.1 % (0.0-2.0) 11/22/17 05:50 Neut # (Auto) 17.7 K/uL (1.8-7.0) H 11/22/17 05:50 Lymph # (Auto) 1.1 K/uL (1.0-4.3) 11/22/17 05:50 [place] # (Auto) 0.5 K/uL (0.0-0.8) 11/22/17 05:50 Eos # (Auto) 0.0 K/uL (0.0-0.7) 11/22/17 05:50 Baso # (Auto) 0.0 K/uL (0.0-0.2) 11/22/17 05:50 Neutrophils % (Manual) 87 % (42-75) H 11/22/17 05:50 Band Neutrophils % 4 % (0-2) H 11/22/17 05:50 Lymphocytes % (Manual) 5 % (20-50) L 11/22/17 05:50 Monocytes % (Manual) 4 % (0-10) 11/22/17 05:50 Platelet Estimate Normal (NORMAL) 11/22/17 05:50 RBC Morphology Normal (NORMAL) 11/22/17 05:50 Sodium 135 mmol/l (132-148) 11/22/17 01:32 Potassium 3.4 MMOL/L (3.6-5.0) L 11/22/17 01:32 Chloride 105 mmol/L (98-107) 11/22/17 01:32 Carbon Dioxide 22 mmol/L (22-30) 11/22/17 01:32 Anion Gap 11 (10-20) 11/22/17 01:32 BUN 8 mg/dl (7-17) 11/22/17 01:32 Creatinine 0.5 mg/dl (0.7-1.2) L 11/22/17 01:32 Est GFR ( Amer) > 60 11/22/17 01:32 Est GFR (Non-Af Amer) > 60 11/22/17 01:32 Random Glucose 109 mg/dL (65-105) H 11/22/17 01:32 Calcium 8.5 mg/dL (8.4-10.2) 11/22/17 01:32 Total Bilirubin 0.6 mg/dl (0.2-1.3) 11/22/17 01:32 AST 28 U/L (14-36) 11/22/17 01:32 ALT 40 U/L (9-52) 11/22/17 01:32 Alkaline Phosphatase 74 U/L (38-126) 11/22/17 01:32 Total Protein 6.9 G/DL (6.3-8.2) 11/22/17 01:32 Albumin 3.5 g/dL (3.5-5.0) 11/22/17 01:32 Globulin 3.4 gm/dL (2.2-3.9) 11/22/17 01:32 Albumin/Globulin Ratio 1.0 (1.0-2.1) 11/22/17 01:32 Beta HCG, Quant 68744.00 mIU/mL 11/22/17 01:32 Attending/Attestation - Attestation I have personally seen and examined this patient.: Yes I have fully participated in the care of the patient.: Yes I have reviewed all pertinent clinical information, including history, physical exam and plan: Yes
[2017-11-22 10:42] LABS: BANDS 4 % (0-2); LYMPHOCYTE 5 % (20-50); MONOCYTE 4 % (0-10); NEUTROPHIL 87 % (42-75); PLATELET ESTIMATE NORMAL (NORMAL); TOTAL CELLS COUNTED 100
== END 2017-11-22 12:10 | disposition home or self-care (01) ==
LOC: H.ER 00:30 → H.ERHOLD 02:29 → H.L&D 02:29 → H.MEDSURG1 08:34
PROVIDERS: ADMIT Obstetrics & Gynecology; ATTEND Obstetrics & Gynecology
DX: O03.9 Complete or unspecified spontaneous abortion without complication (principal)
CPT/HCPCS: 80053; 84702; 85025; 96360; 96361; 96365; 96374; 99285; G0378; J0696; J2270; J2405; J2590; J7030; J7120

== ENCOUNTER 2018-02-24 09:50 | Emergency (ER) | payer MEDICAID, OTHER ==
[2018-02-24 09:50] VITALS: BMI 25.6
[2018-02-24 10:03] VITALS: RESP 18; O2SAT 100
--- NOTE | 2018-02-24 11:08 | ED PDOC ---
HPI: Abdomen Time Seen by Provider: 02/24/18 10:31 Chief Complaint (Nursing): Abdominal Pain Chief Complaint (Provider): Abdominal Pain History Per: Patient History/Exam Limitations: no limitations Onset/Duration Of Symptoms: Persistent (x1 week) Current Symptoms Are (Timing): Still Present Additional Complaint(s): 27 year old female presents to ED with a complaint of upper abdominal pain for 1 week. She denies any nausea, vomiting, diarrhea, dysuria, hematura, or taking pain medication [employer]. LMP: 02/15/18. No weakness, fever, cough. PCP: none provided Past Medical History Reviewed: Historical Data, Nursing Documentation, Vital Signs Vital Signs: Last Vital Signs Temp 98.8 F 02/24/18 10:03 Pulse 70 02/24/18 10:03 Resp 18 02/24/18 10:03 BP 109/70 02/24/18 10:03 Pulse Ox 100 02/24/18 10:03 - Medical History PMH: Anemia Denies: HIV, Chronic Kidney Disease - Surgical History Surgical History: (x 1 for failure to dilate) - Family History Family History: States: Unknown Family Hx - Home Medications Home Medications: Ambulatory Orders Medication Instructions Recorded Cephalexin [Keflex] 250 mg PO TID #15 capsule 11/21/17 Famotidine [Pepcid] 20 mg PO DAILY PRN #6 tab 02/24/18 - Allergies Allergies/Adverse Reactions: Allergies Allergy/AdvReac Type Severity Reaction Status Date / Time No Known Allergies Allergy Verified 02/24/18 10:13 Review of Systems ROS Statement: Except As Marked, All Systems Reviewed And Found Negative Gastrointestinal: Positive for: Abdominal Pain (upper). Negative for: Nausea, Vomiting, Diarrhea Genitourinary Female: Negative for: Dysuria, Hematuria Physical Exam - Reviewed Nursing Documentation Reviewed: Yes Vital Signs Reviewed: Yes - Physical Exam Appears: Positive for: Well, Non-toxic, No Acute Distress Head Exam: Positive for: ATRAUMATIC, NORMAL INSPECTION, NORMOCEPHALIC Skin: Positive for: Normal Color Eye Exam: Positive for: Normal appearance ENT: Positive for: Normal ENT Inspection Neck: Positive for: Normal Cardiovascular/Chest: Positive for: Regular Rate, Rhythm Respiratory: Positive for: Normal Breath Sounds. Negative for: Respiratory Distress Gastrointestinal/Abdominal: Positive for: Soft, Tenderness (bilateral upper quadrants mild). Negative for: Mass Back: Positive for: Normal Inspection. Negative for: L CVA Tenderness, R CVA Tenderness Extremity: Positive for: Normal ROM (upper/lower). Negative for: Tenderness, Pedal Edema Neurologic/Psych: Positive for: Alert, Oriented - Laboratory Results Result Diagrams: 02/24/18 11:25 02/24/18 11:25 Interpretation Of Abn Labs: no acute Urine POC: Negative - ECG O2 Sat by Pulse Oximetry: 100 (RA) Pulse Ox Interpretation: Normal - Progress ED Course And Treament: 1355: Pt. stable. Pain free. Tolerated po. Fu with pcp. AAOx3. Medical Decision Making Medical Decision Making: Initial Impression: Abdominal pain Initial Plan: * Labs * IV fluids * Pepcid 20mg IVP Scribe Attestation: Documented by Aleena Ruano, acting as a scribe for Vinod Sutton MD. Provider Scribe Attestation: All medical record entries made by the Scribe were at my direction and personally dictated by me. I have reviewed the chart and agree that the record accurately reflects my personal performance of the history, physical exam, medical decision making, and the department course for this patient. I have also personally directed, reviewed, and agree with the discharge instructions and disposition. Disposition - Clinical Impression Clinical Impression: Abdominal pain - Patient ED Disposition Is Patient to be Admitted: No Counseled Patient/Family Regarding: Studies Performed, Diagnosis, Need For Followup, Rx Given - Disposition Referrals: [facility] [Outside] - 02/25/18 Disposition: Routine/Home Disposition Time: 14:03 Condition: STABLE Additional Instructions: Return if not better in 3 days. Prescriptions: Famotidine [Pepcid] 20 mg PO DAILY PRN #6 tab PRN Reason: Pain Instructions: Stomach Ache and Stomach Upset Print Language: [place]
[2018-02-24] MEDS ORDERED: Sodium Chloride 0.9% 1,000 ML IV STA (11:10)
[2018-02-24 11:35] LABS: BASO % 0.8 % (0.0-2.0); EOS # 0.1 K/uL (0.0-0.7); EOS % 1.9 % (0.0-4.0); HEMOGLOBIN 12.8 g/dL (12.0-16.0); LYMPH # 1.5 K/uL (1.0-4.3); LYMPH % 33.3 % (20.0-40.0); MEAN CELL VOLUME 86.1 fl (81.0-99.0); MEAN CORPUSCULAR HEMOGLOBIN 27.8 pg (27.0-31.0); MEAN CORPUSCULAR HGB CONC 32.2 g/dL (33.0-37.0); MEAN PLATELET VOLUME 9.6 fl (7.2-11.7); MONO # 0.6 K/uL (0.0-0.8); MONO % 13.3 % (0.0-10.0); NEUT # 2.3 K/uL (1.8-7.0); NEUT % 50.7 % (50.0-75.0); NRBC % 0.3 % (0.0-0.0); RBC 4.6 Mil/uL (3.80-5.20); RED CELL DISTRIBUTION WIDTH 15.3 % (11.5-14.5); WHITE BLOOD COUNT 4.6 K/uL (4.8-10.8)
[2018-02-24 12:14] LABS: SQUAMOUS EPITHIAL 8 /hpf (0-5); URINE BILIRUBIN NEGATIVE (NEGATIVE); URINE BLOOD NEGATIVE (NEGATIVE); URINE CLARITY SLIGHTY-CLOUDY (Clear); URINE COLOR YELLOW (YELLOW); URINE GLUCOSE (UA) NEG (Normal); URINE LEUKOCYTE ESTERASE MOD Leu/uL (Negative); URINE PROTEIN NEGATIVE (NEGATIVE); URINE UROBILINOGEN 0.2-1.0 mg/dL (0.2-1.0)
[2018-02-24 12:24] LABS: ALB/GLOB RATIO 1.2 (1.0-2.1); ALT/SGPT 21 U/L (9-52); AST/SGOT 19 U/L (14-36); BLOOD UREA NITROGEN 13 mg/dl (7-17); CALCIUM 8.5 mg/dL (8.4-10.2); GFR NON-AFRICAN AMERICAN > 60; LIPASE 166 U/L (23-300)
[2018-02-24 14:23] VITALS: BP 117/78; PULSE 65; TEMP 98.9
== END 2018-02-24 14:33 | disposition home or self-care (01) ==
LOC: H.ER 09:50
DX: R10.9 Unspecified abdominal pain (principal)
CPT/HCPCS: 80053; 81003; 81025; 83690; 85025; 96374; 99284; J7030